=== PATIENT | female | born 1990 | race American Indian/Alaskan Native ===

== ENCOUNTER 2020-08-19 18:53 | Outpatient (CLI) | payer MEDICAID ==
[2020-08-19 19:31] VITALS: BP 100/58
--- NOTE | 2020-08-19 21:49 | Ultrasound Report ---
ULTRASOUND OBSTETRIC INDICATION / CLINICAL INFORMATION: complete ultrasound. Clinical Gestational Age (GA): 36.1 weeks.days TECHNIQUE: Transabdominal. COMPARISON: None available. FINDINGS: There is a single intrauterine . Biparietal Diameter = 8.71 cm = 35.1 weeks.days Head Circumference = 32.64 cm = 37.0 weeks.days Abdominal Circumference = 33.36 cm = 37.2 weeks.days Femur Length = 7.01 cm = 36.0 weeks.days Average Ultrasound Age (AUA) = 36.3 weeks.days Heart Rate: 177 beats per minute. Estimated Weight in grams (if calculated): 3001 Estimated Weight Growth Percentile (if calculated): 67 Position: cephalic. Placenta: Posterior grade 1 and free of the os. Amniotic Fluid Volume: normal Amniotic Fluid Index (SUJATA) in cm (if calculated): 21.2. Maternal Adnexa: No significant abnormality. IMPRESSION: 1. Single, living intrauterine with estimated sonographic age of 36.3 weeks.days 2. No significant sonographic abnormality. Signer Name: Flavio Snider MD Signed: 08/19/2020 9:44 PM Workstation Name: [id number]
== END 2020-08-19 21:00 | disposition home or self-care (01) ==
LOC: TRG 18:53 → APU 18:55 → TRG 21:00
DX: Z34.93 Encounter for supervision of normal pregnancy, unspecified, third trimester (principal); Z3A.36 36 weeks gestation of pregnancy
CPT/HCPCS: 59025; 76805; 76816

== ENCOUNTER 2020-08-30 05:33 | Outpatient (CLI) | payer MEDICAID | END 2020-08-30 08:08 | disposition home or self-care (01) | LOC: TRG 05:33 → APU 05:34 | CPT/HCPCS: 59025 ==

== ENCOUNTER 2020-09-04 01:06 | Outpatient (CLI) | payer MEDICAID ==
[2020-09-04 02:10] VITALS: BP 107/65
--- NOTE | 2020-09-04 04:58 | Ultrasound Report ---
ULTRASOUND BIOPHYSICAL PROFILE INDICATION / CLINICAL INFORMATION: Evaluate well-being COMPARISON: Obstetrical ultrasound, 08/19/2020 FINDINGS: BREATHING MOVEMENT = 2 GROSS BODY MOVEMENT = 2 TONE = 2 QUALITATIVE AMNIOTIC FLUID VOLUME = 2 TOTAL BIOPHYSICAL SCORE = 10/31 AMNIOTIC FLUID INDEX (cm) = 12.9 PRESENTATION: Cephalic. HEART RATE (beats per minute): 140 IMPRESSION: 1. biophysical profile = 10/31 Signer Name: Cheri Hurtado MD Signed: 09/04/2020 4:54 AM Workstation Name: [id number]
== END 2020-09-04 03:15 | disposition home or self-care (01) ==
LOC: TRG 01:06 → APU 01:10 → TRG 03:15
PROVIDERS: ATTEND Obstetrics & Gynecology
DX: O26.893 Other specified pregnancy related conditions, third trimester (principal); R07.9 Chest pain, unspecified; Z3A.38 38 weeks gestation of pregnancy
CPT/HCPCS: 59025; 76815; 76819

== ENCOUNTER 2020-09-04 03:26 | Emergency (ER) | payer MEDICAID ==
[2020-09-04 03:34] VITALS: BP 102/56
[2020-09-04 05:01] LABS: Basophils % (Auto) 0.6 % (0.0-1.8); Eosinophils # (Auto) 0.1 K/mm3 (0.0-0.4); Hematocrit 25.1 % (30.3-42.9); Lymphocytes # (Auto) 1.3 K/mm3 (1.2-5.4); Lymphocytes % (Auto) 19.4 % (13.4-35.0); Mean Corpuscular HGB Conc 32 % (30-34); Monocytes # (Auto) 0.5 K/mm3 (0.0-0.8); Platelet Count 223 K/mm3 (140-440); Red Cell Distribution Width 16.8 % (13.2-15.2)
[2020-09-04 05:15] LABS: Mean Corpuscular Volume 70 fl (79-97)
[2020-09-04 05:25] LABS: Alanine Aminotransferase 6 units/L (7-56); Albumin 3.5 g/dL (3.9-5); Blood Urea Nitrogen 5 mg/dL (7-17); Calcium 8.4 mg/dL (8.4-10.2); Hemolysis Index 0
[2020-09-04 05:26] LABS: BUN/Creatinine Ratio 10
--- NOTE | 2020-09-09 12:44 | Electrocardiograph Report ---
[facility] Test Date: 2020-09-04 Test Time: 03:39:27 Pat Name: MIK DORANTES Department: Room: Gender: F [employer] Teacher: : 1990 Requested By: ED DOC Order Number: [id number] Reading MD: Fred Brown Measurements Intervals Joiner Rate: 78 P: 44 MI: 193 QRS: 77 QRSD: 74 T: 38 QT: 381 QTc: 436 Interpretive Statements Sinus rhythm Normal ECG No previous ECG available for comparison Electronically Signed On 09-09-2020 12:43:33 EDT by Fred Brown
== END 2020-09-04 08:50 | disposition left against medical advice (07) ==
LOC: ED 03:26
DX: O26.893 Other specified pregnancy related conditions, third trimester (principal); R07.89 Other chest pain; Z3A.38 38 weeks gestation of pregnancy; Z53.21 Procedure and treatment not carried out due to patient leaving prior to being seen by health care provider
CPT/HCPCS: 36415; 59025; 76815; 76819; 80053; 84484; 85025; 93005

== ENCOUNTER 2021-11-16 20:46 | Emergency (ER) | payer MEDICAID ==
[2021-11-16] MEDS ORDERED: SODIUM CHLORIDE 0.9% 1000 ML 1,000 ML IV ONE (22:12)
--- NOTE | 2021-11-16 22:18 | Emergency Department Report ---
ED Medical Clearance HPI - General Chief complaint: Medical Clearance Stated complaint: NEAR FAINTING Time Seen by Provider: 11/16/21 21:42 Source: EMS Mode of arrival: Stretcher - History of Present Illness Initial comments: 31 yo at 8 weeks gestation who present with near syncope/fainting spell while at work tonight. was confirmed by home test kit. She says it was really hot at work tonight before the symptoms. Pt denies any CP or sob or palpitation. No other modifying or associated factors. Home medications: Home Medications Medication Instructions Recorded Confirmed Last Taken Vitamin 1 tab PO DAILY 12/15/18 12/15/18 3 Weeks Ago ~07/29/20 1 tab Previous Rx's Medication Instructions Recorded Last Taken Type Ferrous Sulfate [Feosol 325 MG tab] 325 mg PO BID 30 Days #60 tablet 12/17/18 06/16/20 Rx 1 tab Allergies/Adverse reactions: Allergies Allergy/AdvReac Type Severity Reaction Status Date / Time No Known Allergies Allergy Verified 11/16/21 20:59 ED Review of Systems ROS: Stated complaint: NEAR FAINTING Other details as noted in HPI Comment: All other systems reviewed and negative Cardiovascular: syncope Gastrointestinal: nausea. denies: vomiting ED Past Medical Hx - Past Medical History Hx Hypertension: Yes (previous pregnancies x4 plus current) Hx Congestive Heart Failure: No Hx Diabetes: Yes (Gestional) Hx Deep Vein Thrombosis: No Hx Renal Disease: No Hx Sickle Cell Disease: No Hx Seizures: No Hx Asthma: Yes (last attack 2019) Hx COPD: No Hx HIV: No - Social History Smoking Status: Never Smoker Substance Use Type: None - Medications Home Medications: Home Medications Medication Instructions Recorded Confirmed Last Taken Type Vitamin 1 tab PO DAILY 12/15/18 12/15/18 3 Weeks Ago History ~07/29/20 1 tab Ferrous Sulfate [Feosol 325 MG tab] 325 mg PO BID 30 Days #60 tablet 12/17/18 08/19/20 06/16/20 Rx 1 tab ED Physical Exam - General Limitations: No Limitations General appearance: alert, in no apparent distress - Head Head exam: Present: normal inspection - Eye Eye exam: Present: normal appearance Pupils: Present: normal accommodation - ENT ENT exam: Present: normal exam, normal orophraynx, mucous membranes dry - Neck Neck exam: Present: normal inspection, full ROM. Absent: tenderness - Respiratory Respiratory exam: Present: normal lung sounds bilaterally. Absent: respiratory distress, accessory muscle use - Cardiovascular Cardiovascular Exam: Present: regular rate, normal rhythm, normal heart sounds - GI/Abdominal GI/Abdominal exam: Present: soft, normal bowel sounds. Absent: distended, tenderness - Extremities Exam Extremities exam: Present: normal inspection, full ROM, normal capillary refill. Absent: tenderness, pedal edema - Back Exam Back exam: Absent: tenderness - Neurological Exam Neurological exam: Present: alert, oriented X3 - Psychiatric Psychiatric exam: Present: normal affect, normal mood - Skin Skin exam: Present: warm, normal color ED Course Vital Signs 11/16/21 20:56 Temperature 98.6 F Pulse Rate 76 Respiratory 18 Rate Blood Pressure 118/72 [Left] O2 Sat by Pulse 98 Oximetry ED Medical Decision Making - Lab Data Result diagrams: 11/16/21 22:23 11/16/21 22:23 - Medical Decision Making here with near syncope --here with palpitation associated with syncope episode while working in a hot environment-- this is likely vasovagal related to heat e xhaustion--but differential could be and not limited to seizure, symptomatic anemia, myocardial infarction, pulmonary embolism, anxiety, CVA especially posterior stroke or thyroid abnormality--in order to rule those out I will go ahead and order routine cardiopulmonary work-up that include troponin, EKG, chest x-ray, BNP, CKMB, and CBC, CMP, Urinalysis and thyroid panel for any correctable infectious process or electrolyte abnormality as a cause. Will also order CT brain for any intracranial abnormality as mentioned above. In the meantime will give ivf ns 1L bolus for hydration as most are dehydrated in the hot weather anyway. ED Disposition Clinical Impression: Vasovagal near syncope Qualifiers: Weeks of gestation: 8 weeks Qualified Code(s): Z3A.08 - 8 weeks gestation of Disposition: 01 HOME / SELF CARE / HOMELESS Is pt being admited?: No Does the pt Need Aspirin: No Condition: Stable Instructions: Near-Syncope, [id number], First Trimester of , [id number], Preventing Injuries During , [id number] Additional Instructions: Be sure to eat 3-4 square male per day to help you during your Eat small meals at a time more frequency Increase your daily fluid to help your hydration Call and keep your follow-up as scheduled Please do not hesitate to call or return to emergency if your symptoms worsen Referrals: PRIMARY CARE, [Primary Care Provider] - 3-5 Days Time of Disposition: 01:17
[2021-11-16 22:56] LABS: Basophils % (Auto) 0.5 % (0.0-1.8); Eosinophils # (Auto) 0.1 K/mm3 (0.0-0.4); Eosinophils % (Auto) 1.1 % (0.0-4.3); Hematocrit 34.2 % (30.3-42.9); Lymphocytes # (Auto) 1.6 K/mm3 (1.2-5.4); Lymphocytes % (Auto) 34.6 % (13.4-35.0); Mean Corpuscular HGB Conc 32 % (30-34); Mean Corpuscular Volume 87 fl (79-97); Monocytes # (Auto) 0.4 K/mm3 (0.0-0.8); Monocytes % (Auto) 7.8 % (0.0-7.3); Platelet Count 305 K/mm3 (140-440); Red Blood Count 3.93 M/mm3 (3.65-5.03); Red Cell Distribution Width 14.7 % (13.2-15.2)
[2021-11-16 23:17] LABS: Alanine Aminotransferase 18 units/L (7-56); Albumin 3.7 g/dL (3.9-5); Blood Urea Nitrogen 7 mg/dL (7-17); Calcium 8.5 mg/dL (8.4-10.2); Hemolysis Index 3
[2021-11-16 23:19] LABS: BUN/Creatinine Ratio 14
[2021-11-16 23:51] LABS: Color,Urine Straw (Yellow)
[2021-11-16 23:58] LABS: Mucus,Urine FEW /HPF
[2021-11-17 00:02] LABS: Amphetamine Screen,Urine PRESUMPTIVE NEGATIVE; Benzodiazepines Screen,Urine PRESUMPTIVE NEGATIVE; Cannabinoid Screen,Urine PRESUMPTIVE NEGATIVE; Cocaine Screen,Urine PRESUMPTIVE NEGATIVE; Methadone Screen,Urine PRESUMPTIVE NEGATIVE; Opiate Screen,Urine PRESUMPTIVE NEGATIVE
[2021-11-17 01:33] VITALS: BP 95/50
== END 2021-11-17 01:34 | disposition home or self-care (01) ==
LOC: ED 20:46
DX: O26.891 Other specified pregnancy related conditions, first trimester (principal); R55 Syncope and collapse; Z3A.08 8 weeks gestation of pregnancy; Z79.899 Other long term (current) drug therapy
CPT/HCPCS: 36415; 80053; 80307; 80320; 81001; 84703; 85025; 96360; 99284; G0480